=== PATIENT | female | born 1990 | race Caucasian/White ===

== ENCOUNTER 2020-04-27 17:17 | Emergency (ER) | payer OTHER, SELFPAY ==
[2020-04-27 17:44] VITALS: BP 110/67; PULSE 80; RESP 18; TEMP 37.1; O2SAT 100; BMI 22.4
[2020-04-27 19:12] LABS: Glucose Urine UA NEG (NEG); Leukocyte Esterase Urine NEG (NEG); Nitrite Urine NEG (NEG); PH 6.5 (5.0-8.0); Specific Gravity - Urine 1.015 (1.005-1.025); Urine Blood NEG (NEG); Urine Ketones NEG (NEG); Urine Protein NEG (NEG-TRACE)
[2020-04-27 19:16] LABS: Appearance Urine CLEAR; Color Urine YELLOW
[2020-04-27 19:44] VITALS: BP 119/69; PULSE 92; RESP 18; TEMP 37.2; O2SAT 100
--- NOTE | 2020-04-27 19:55 | ED_ITS ---
HPI - Back Pain/Injury General Chief Complaint: Back Pain/Injury Stated Complaint: Back pain,uti? Time Seen by Provider: 04/27/20 19:55 Source: patient Mode of arrival: ambulatory Limitations: no limitations History of Present Illness HPI Narrative: Patient has history of chronic back pain no recent injury also has urge incontinence seen at urgent care center who sent her here for imaging patient denies any significant increase in the pain loss of sensation in the back no motor weakness patient ambulatory otherwise MD elicited complaint: back pain Pertinent past history: prior back pain Onset (ago): year(s) Timing: constant Severity: mild Similar Symptoms Previously: Yes Related Data Previous Rx's Medication Instructions Recorded cyclobenzaprine 10 mg PO Q8H #20 tab 04/27/20 ibuprofen 600 mg PO Q6H PRN #20 tab 04/27/20 Allergies Allergy/AdvReac Type Severity Reaction Status Date / Time Sulfa (Sulfonamide Allergy Unknown Verified 04/27/20 17:48 Antibiotics) Review of Systems Review of Systems: Yes all other systems are reviewed and are negative [facility] Social History Social History Alcohol intake: current Alcohol intake frequency: holidays/special occasions only Smoking Status: Never smoker Use of substances other than those prescribed or required for medical reasons: No Advance Directives: No Physical Exam Vital Signs: Vital Signs: Last Vital Signs Temp 99.0 F 04/27/20 19:44 Pulse 92 04/27/20 19:44 Resp 18 04/27/20 19:44 BP 119/69 04/27/20 19:44 Pulse Ox 100 04/27/20 19:44 Body Mass Index 22.4 Const: General: healthy appearing, comfortable and no acute distress Orientation/consciousness: patient oriented x3 HENMT: Head: Yes normocephalic and Yes atraumatic Eyes: General: appearance normal, both eyes and all related structures Neck: Neck: Yes normal visual inspection and Yes full ROM Chest: Chest palpation & inspection: normal palpation of entire chest wall Resp: Effort & Inspection: normal respiratory effort Auscultation: clear to auscultation bilaterally Cardio: Palpation: normal PMI Rate: regular rate Rhythm: regular rhythm Heart sounds: S1 normal heart sound present and S2 normal heart sound present GI: Inspection: Yes normal to inspection Palpation (GI): Soft to palpation and nontender : General: Yes no CVA tenderness Back/Spine/Pelvis: Back: no CVA tenderness Thoracic/Lumbar Spine: thoracic and lumbar spine normal to inspection, straight leg raise negative bilaterally, paraspinal muscle tenderness, No thoracic spinal tenderness and No lumbar spinal tenderness Skin: General skin exam: no rashes or lesions noted Neuro: Other: Normal sacral sensation General: patient oriented x3, Normal light touch and pain sensation, no focal motor deficits, normal sensation to monofilament and deep tendon reflexes 2+ bilaterally Extrem: General: Yes full ROM and Yes normal gait Course Course Course Narrative: Patient with chronic sciatica on the right side specially came with urge incontinence no true incontinence of stool or urine no loss of sexual sensations no signs of cauda equina at this time will discharge patient home on pain medication and muscle relaxation MDM - Back Pain/Injury Lab Data Labs: Lab Results 04/27/20 Range/Units 19:04 Urine Color YELLOW Urine Appearance CLEAR Urine pH 6.5 (5.0-8.0) Ur Specific [place] 1.015 (1.005-1.025) Urine Protein NEG (NEG-TRACE) MG/DL Urine Glucose (UA) NEG (NEG) MG/DL Urine Ketones NEG (NEG) MG/DL Urine Blood NEG (NEG) Urine Nitrite NEG (NEG) Ur Leukocyte Esterase NEG (NEG) Urine RBC 0-2 (0) /HPF Urine WBC 0-2 (0-4) /HPF Ur Squamous Epith Cells TRACE /LPF Urine Bacteria TRACE /LPF Discharge Plan Discharge Clinical Impression: Strain of lumbar region Patient Disposition: Home, Self-Care Instructions: Chronic Back Pain (DC) Additional Instructions: Rest take pain medication as prescribed Prescriptions: New cyclobenzaprine 10 mg tablet 10 mg PO Q8H Qty: 20 RF: 0 ibuprofen 600 mg tablet 600 mg PO Q6H PRN (Reason: pain) Qty: 20 RF: 0 Interventions: ED Discharge Assessment Last Done: 04/27/20 20:13 Discharge Date/Time: 04/27/20 20:14
[2020-04-27 21:36] LABS: Bacteria Urine TRACE /LPF; RBC Urine 0-2 /HPF (0); Squamous Epithelial Cell Urine TRACE /LPF; WBC Urine 0-2 /HPF (0-4)
== END 2020-04-27 20:14 | disposition home or self-care (01) ==
PROVIDERS: Emergency Provider Internal Medicine; PCP Internal Medicine
DX: S39.012A Strain of muscle, fascia and tendon of lower back, initial encounter (principal); X58.XXXA Exposure to other specified factors, initial encounter; Y93.9 Activity, unspecified; Y92.9 Unspecified place or not applicable; Y99.9 Unspecified external cause status; Z79.899 Other long term (current) drug therapy
CPT/HCPCS: 81001; 99283; 99284

== ENCOUNTER 2020-05-15 17:54 | Outpatient (REF) | payer OTHER, SELFPAY ==
--- NOTE | ~2020-05-15 | MR_ITS ---
EXAMINATION: MR LUMBAR SPINE WITHOUT CONTRAST CLINICAL INFORMATION: Right-sided sciatica. COMPARISON: None TECHNIQUE: MRI of the lumbar spine was obtained using routine sequences without contrast. FINDINGS: The lumbar vertebral bodies maintain normal heights and alignment. The disc heights are preserved. No bone marrow edema is seen. The distal spinal cord appears normal. The conus medullaris terminates normally at the L1 level. The visualized paraspinal muscles and intra-abdominal and pelvic contents are within normal limits. SPINAL LEVELS: L1-L2: No posterior disc abnormality. No spinal canal or neural foraminal stenosis. L2-L3: No posterior disc abnormality. No spinal canal or neural foraminal stenosis. L3-L4: No posterior disc abnormality. No spinal canal or neural foraminal stenosis. L4-L5: Minimal disc bulging. No spinal canal or neural foraminal stenosis. L5-S1: No posterior disc abnormality. No spinal canal or neural foraminal stenosis. MR/MR lumbar spine wo con IMPRESSION: No significant abnormality seen in the lumbar spine. No spinal canal or neural foraminal stenosis. No evidence of nerve root compression.
== END 2020-05-15 17:55 | disposition home or self-care (01) ==
LOC: HO.MRI 17:54
PROVIDERS: Visit Provider Internal Medicine
DX: M54.31 Sciatica, right side (principal)
CPT/HCPCS: 72148